=== PATIENT | male | born 1935 | race Caucasian/White ===

== ENCOUNTER → 2021-03-20 | Outpatient (CLI) | payer MEDICARE ==
[~2021-03-20] MED LIST: ACCUNEB SO1.25 MG/1; ADULT LOW DOSE81 MG PO; ASPIRIN325 PO; ASTRAGALUS EXT100 GM PO; B COMPLEX1 EACH PO; CO Q-1010 MG PO; CO Q-10100 MG PO; COQ-10100 MG PO; ECHINACEA HERB380 MG PO; ECHINACEA400 MG PO; FEOSOL PO; FEOSOL325 M1 PO; FIBER0.52 G1; FIORICET 50-301 EACH PO; FISH OIL 1,001000 M2 PO; FISH OIL 1,2001 EAC4 PO; FLOMAX0.4 MG PO; HYDROCODONE-APA1 TA1 PO; LEVOTHYROXINE 0.1 MG PO; LIDODERM 5%1 PATC1 TOP; LORTAB 5-500 T1 EAC1 PO; LUTEIN-ZEAXANTHIN; MAG-AL PLUS SUS30 ML PO; MELOXICAM7.5 MG PO; MILK OF MA2400 MG/10 PO; MILK THISTLE500 MG PO; MOBIC7.5 M1 PO; MOBIC7.5 MG PO; OASIS; OASIS TEARS PLUS OPHTHALMIC; OMEPRAZOLE 20 M20 M1 PO; OMEPRAZOLE 20 M20 MG PO; OMEPRAZOLE40 MG PO; PRILOSEC20 MG PO; PROTONIX40 M1 PO; PSYLLIUM HUSK1 GM PO; REFRESH OPTIVE10 ML OPHTHALMIC; RESTASIS1 EACH OPHTHALMIC; SELENIUM100 MCG PO; SELENIUM200 MC1 PO; SIMVASTATIN20 MG PO; SUPER B COMPLE1 EAC3 PO; SYNTHROID100 MCG PO; SYNTHROID125 MCG PO; TAMSULOSIN HCL0.4 M1 PO; TAMSULOSIN HCL0.4 MG PO; TESSALON PERLE100 MG PO; TURMERIC500 MG PO; TYLENOL325 MG PO; VENTOLIN HFA 1818 GM INH; VITAMIN B COMP1 EAC7 PO; VITAMIN D1000 UNI1 PO; VITAMIN D32000 UNI1 PO; VITAMIN D35000 UNI1 PO; ZOCOR20 MG PO; ZOFRAN ODT4 MG PO; [UNRECOGNIZED DRUG - OTHER]; [UNRECOGNIZED DRUG - OTHER]; [UNRECOGNIZED DRUG - OTHER]; [UNRECOGNIZED DRUG - OTHER] PO
== END ==
LOC: ULTRA 09:18
PROVIDERS: ATTEND Internal Medicine
DX: I82.432 Acute embolism and thrombosis of left popliteal vein (principal); I82.412 Acute embolism and thrombosis of left femoral vein; I10 Essential (primary) hypertension; I70.0 Atherosclerosis of aorta; R60.1 Generalized edema